=== PATIENT | male | born 1970 | race Hispanic/Latino ===

== ENCOUNTER 2017-05-30 10:53 | Emergency (ER) | payer BC ==
[~2017-05-30] VITALS: Ht 175.3 cm; Wt 86.2 kg
[2017-05-30 11:50] LABS: STREPTOCOCCUS GRP A ANTIGEN NEGATIVE (NEGATIVE)
[2017-05-30 12:00] LABS: INFLUENZAE A&B ANTIGEN (RAPID) POSITIVE FLU B (NEGATIVE)
== END 2017-05-30 13:45 | disposition home or self-care (01) ==
LOC: ER 10:53 → EDBD 10:53 → ER 13:45
DX: R50.9 Fever, unspecified (principal); R05 Cough; R11.0 Nausea; J11.1 Influenza due to unidentified influenza virus with other respiratory manifestations
CPT/HCPCS: 83518; 87070; 87400; 99282